=== PATIENT | male | born 1980 | race Caucasian/White ===

== ENCOUNTER 2021-12-10 09:16 | Emergency (ER) | payer OTHER, SELFPAY ==
[2021-12-10 09:29] VITALS: BP 160/93; PULSE 73; RESP 16; TEMP 36.7; O2SAT 99
--- NOTE | 2021-12-10 09:29 | ED.URI ---
HPI - URI/Sore Throat General Chief Complaint: Upper Respiratory Infection Stated Complaint: cough,sinus issues Time Seen by Provider: 12/10/21 09:29 Source: patient, RN notes reviewed and old records reviewed Mode of arrival: ambulatory Limitations: no limitations History of Present Illness HPI Narrative: 41-year-old male who presents to [facility] care with complaints of sinus congestion and drainage and also cough which has been persistent for about a month with increased symptoms for the past 1 week duration. Patient reports he has been taking some Claritin he does have a history of sinus allergies he reports which seem to be worse this year. Patient reports he has had COVID vaccinations and booster has not had COVID. Patient does have long history of tobacco abuse. MD elicited complaint: cough, rhinorrhea and nasal congestion Pertinent past history: seasonal allergies and other (Tobacco abuse) Onset (ago): month(s) (1 month with increased symptoms of 1 week) Description of mucous: yellow Treatments prior to arrival: cold medicine and other (claritin, cough drops) Related Data Home Medications Medication Instructions Recorded Confirmed amlodipine 5 mg tablet 5 mg PO DAILY 12/10/21 12/10/21 lisinopril 20 mg tablet 20 mg PO DAILY 12/10/21 12/10/21 Allergies Allergy/AdvReac Type Severity Reaction Status Date / Time Penicillins Allergy Unknown Verified 12/10/21 09:34 Review of Systems Review of Systems: CONSTITUTIONAL: Denies fever, chills, or sweats. EYES: Denies visual changes, redness, or discharge. ENT: Positive for rhinorrhea, congestion, no sore throat, or otalgia. CARDIOVASCULAR: Denies chest pain, palpitations, or edema. RESPIRATORY: Positive for productive cough no acute dyspnea. GASTROINTESTINAL: Denies abdominal pain, nausea, vomiting, or diarrhea. GENITOURINARY: Denies dysuria or hematuria. SKIN: Denies rash or itching. MUSCULOSKELETAL: Denies back pain, joint pain, or myalgia. NEUROLOGIC: Denies headache, numbness, or weakness. PSYCHIATRIC: Denies anxiety or depression. All systems reviewed & are unremarkable except as noted in HPI and below [facility] Past Medical History Medical History (Updated 12/10/21 @ 10:43 by Barbi Guillory NP) Hypertension Multiple fractures Seasonal allergies Surgical History Surgical History (Updated 12/10/21 @ 10:41 by Barbi Guillory NP) H/O inguinal hernia repair History of tonsillectomy Hx of HILARY Family History Family History (Updated 12/10/21 @ 10:42 by Barbi Guillory NP) Mother Hypertension Father Hypertension Social History Social History (Updated 12/10/21 @ 09:59 by Barbi Guillory NP) Smoking packs per day: 1 Smoking cigarettes per day: 20.0 Years smoked: 20 Smoking pack-years: 20.00 Smoking status: Current every day smoker Tobacco type: cigarettes Alcohol intake: current Alcohol use details: social Substance use type: does not use Living arrangements: with family Gender identity (if verbalized by the patient): Male Comments At time of signature, agree with nursing past medical, surgical, social and family history. There is no relevant family history pertinent to the presenting complaint Exam Narrative: GENERAL: Well-appearing, well-nourished, and in no acute distress. HEAD: Normocephalic, atraumatic. EYES: PERRLA and EOMI. ENT: Nares with some redness of membranes with yellowish rhinorrhea no epistaxis. Mucous membranes moist.TM's normal with good light reflex, throat pink with no tonsils present,post nasal drainage. NECK: Supple. no lymphadenopathy CHEST: Clear to auscultation. No respiratory distress.SAO2 99% on room air, persistent cough HEART: Regular rate and rhythm. No murmur heard. Normal peripheral pulses. ABDOMEN: Soft, nontender, nondistended, normal active bowel sounds. EXTREMITIES: Normal range of motion. No edema. SKIN: Warm, dry, no rash. NEURO: No focal deficits. Alert and oriented x3. [place]
== END 2021-12-10 09:50 | disposition home or self-care (01) ==
PROVIDERS: Emergency Provider Registered Nurse
DX: J01.90 Acute sinusitis, unspecified (principal); R05.9 Cough, unspecified; I10 Essential (primary) hypertension; F17.210 Nicotine dependence, cigarettes, uncomplicated
CPT/HCPCS: 99203; G0463